=== PATIENT | male | born 1995 | race African-American/Black ===

== ENCOUNTER 2018-03-09 07:29 | Emergency (ER) | payer OTHER ==
[2018-03-09] MEDS ORDERED: Ketorolac INJ* 30 MG/ML 1 ML VIAL IV PUSH ONE (07:51)
[2018-03-09] MEDS ORDERED: Ondansetron ODT TAB* 4 MG PO ONE (07:51)
[2018-03-09] MEDS ORDERED: NS 0.9% 1000 ML* 1,000 ML IV ONE (07:51)
--- NOTE | 2018-03-09 08:12 | ED ---
Back Pain - HPI Summary HPI Summary: Pt. is a 22y.o male who presents to the ER for intermittent left flank pain x 2- 3 days. Pt. denies falls or injury. Pt. states he has had a kidney stone in the past and sxs today seem similar. Pain is intermittent and sharp in nature. No aggravating or alleviating factors. Pt. denies hematuria or urinary symptoms. He admits to N/V and chills. He has no past medical history. He has never seen a urologist or needed intervention. Symptoms are moderate in severity. - History of Current Complaint Chief Complaint: EDFlankPain Stated Complaint: LT FLANK PAIN Time Seen by Provider: 03/09/18 07:40 Hx Obtained From: Patient Onset/Duration: Sudden Onset Onset/Duration: Started Days Ago Timing: Intermittent Severity Initially: Moderate Severity Currently: Moderate Pain Intensity: 7 Character: Sharp Associated Signs And Symptoms: Positive: Abdominal Pain, Flank Pain - Allergies/Home Medications Allergies/Adverse Reactions: Allergies Allergy/AdvReac Type Severity Reaction Status Date / Time No Known Allergies Allergy Verified 03/09/18 07:36 PMH/Surg Hx/FS Hx/Imm Hx Previously Healthy: Yes Infectious Disease History: No Infectious Disease History: Denies: Traveled Outside the [place] in Last 30 Days - Social History Occupation: Unemployed Lives: With Family Alcohol Use: Occasionally Alcohol Amount: week ends Substance Use Type: Reports: Cocaine, Marijuana Substance Use Comment - Amount & Last Used: Marijuana 1-2 times a week, cocaine is occasional Smoking Status (MU): Current Some Day Smoker Review of Systems Positive: Chills. Negative: Fever Positive: Abdominal Pain, Vomiting, Nausea. Negative: Diarrhea Positive: flank pain. Negative: burning, dysuria, frequency, hematuria All Other Systems Reviewed And Are Negative: Yes Physical Exam Triage Information Reviewed: Yes Vital Signs On Initial Exam: Initial Vitals Temp Pulse Resp BP Pulse Ox 97.8 F 88 16 133/77 98 03/09/18 07:34 03/09/18 07:34 03/09/18 07:34 03/09/18 07:34 03/09/18 07:34 Vital Signs Reviewed: Yes Appearance: Positive: Well-Appearing - Pt. lying on bed, appears mildly uncomfortable, but nontoxic. Skin: Positive: Warm, Dry Head/Face: Positive: Normal Head/Face Inspection Eyes: Positive: Normal Respiratory/Lung Sounds: Positive: Clear to Auscultation Cardiovascular: Positive: Normal Abdomen Description: Positive: Other: - Abd. is soft and nontender throughout. Mild left CVA tenderness on purcussion. Neurological: Positive: Normal, CN Intact II-III Psychiatric: Positive: Normal Diagnostics - Vital Signs Vital Signs Temp Pulse Resp BP Pulse Ox 03/09/18 08:00 86 98 03/09/18 07:43 96 98 03/09/18 07:41 94 128/76 97 03/09/18 07:34 97.8 F 88 16 133/77 98 - Laboratory Result Diagrams: 03/09/18 08:00 03/09/18 08:00 Lab Statement: Any lab studies that have been ordered have been reviewed, and results considered in the medical decision making process. Back Pain Course/Dx - Course Course Of Treatment: Pt. presenting to the ER for left flank pain. No injury. He is afebrile with stable vital signs. Will obtain labs and noncon CT. He was started on IV fluids, toradol and zofran. CT abd/pelvis per radiology: IMPRESSION: Mild LEFT hydronephrosis is traced to a 5 mm maximum dimension stone at the. level of the pelvic inlet. Additional 1.5 and 3 mm calyceal stones at the LEFT kidney. On re-exam pt.'s pain has resolved. CBC and CMP are unremarkable. U/A shows RBCs and trace ketones, no signs of infection. On re- exam pt. is sitting in chair and ready to go home. He lives in [facility] and is just in the area visiting friends. Pt. states he is returning home on Sunday. Pt. is currently pain free. Results were discussed. Advised pt. he may possibly need intervention if stone does not pass. Recommend he contact his PCP on Sunday for urology referral. Rx for percocet, zofran, and flomax sent. [employer] was queried and no reg flags were identified. Pt. to return to ER for uncontrolled pain, vomiting, or fever or if concerned. Pt. understands and agrees with plan. - Diagnoses Differential Diagnosis/HQI/PQRI: Positive: Strain, Sprain, Other - UTI, urolithiasis, hydronephrosis, pyelonephritis. Provider Diagnoses: Hydronephrosis, Urolithiasis Discharge - Sign-Out/Discharge Documenting (check all that apply): Discharge/Admit/Transfer - Discharge Plan Condition: Good Disposition: HOME Prescriptions: Ondansetron ODT TAB* [Zofran 4 MG Odt TAB*] 4 mg PO Q6H PRN #12 tab.odt PRN Reason: Nausea oxyCODONE/Acetamin 5/325 MG* [Percocet 5/325 TAB*] 1 tab PO Q6H PRN #12 tab MDD 4 tablets PRN Reason: Pain Tamsulosin CAP* [Flomax CAP*] 0.4 mg PO DAILY #5 cap Patient Education Materials: Kidney Stones (ED), Hydronephrosis (ED) Referrals: Non Staff,Doctor [Primary Care Provider] - Additional Instructions: Call your PCP on Sunday for a urology referral Take medications as directed Increase fluids Return to ER for uncontrollable pain, vomiting, or for fever, or if concerned - Billing Disposition and Condition Condition: GOOD Disposition: HOME
--- NOTE | 2018-03-09 08:37 | RAD ---
INDICATION: LEFT flank pain. History of urolithiasis. COMPARISON: January 21, 2016 TECHNIQUE: Multidetector CT images were obtained from the lung bases to the ischial tuberosities. Evaluation of the viscera is limited without IV contrast. Multiplanar reformation. REPORT: Unremarkable visualized inferior thorax. Unremarkable unenhanced liver, gallbladder, pancreas, spleen. Negative for CT abnormality of the upper GI, small bowel, appendix, or colon. Negative for ascites, free air, hernias. Normal adrenal glands. Unremarkable RIGHT kidney, ureter, and urinary bladder. Mild LEFT hydronephrosis is traced to a 5 mm maximum dimension stone at the level of the pelvic inlet. Additional 1.5 and 3 mm calyceal stones at the LEFT kidney. Negative for significant perinephric or periureteral inflammatory stranding. Negative for lymphadenopathy. Normal diameter abdominal aorta and iliac arteries. Physiologic distention of the IVC. Negative for suspicious osseous lesions. IMPRESSION: Mild LEFT hydronephrosis is traced to a 5 mm maximum dimension stone at the level of the pelvic inlet. Additional 1.5 and 3 mm calyceal stones at the LEFT kidney.
[2018-03-09 08:46] LABS: ABS Basophils 0 10^3/ul (0-0.2); ABS Eosinophils 0.1 10^3/ul (0-0.6); ABS Monocytes 0.8 10^3/ul (0-0.8); ABS Neutrophils 4.1 10^3/ul (1.5-7.7); ABS Nucleated RBC 0 10^3/ul; Eosinophil % 1.4 % (0-6); Hematocrit 37 % (42-52); Hemoglobin 12.4 g/dl (14.0-18.0); Lymphocyte % 27.9 % (25-47); Mean Corpuscular HGB Conc 34 g/dl (31-36); Mean Corpuscular Hemoglobin 29 pg (27-31); Mean Corpuscular Volume 85 fL (80-94); Mean Platelet Volume 8.3 um3 (7.4-10.4); Nucleated Red Blood Cells % 0; Platelet Count 219 10^3/ul (150-450); Red Blood Count 4.34 10^6/ul (4.0-5.4); Red Cell Distribution Width 12 % (10.5-15); White Blood Count 7.1 10^3/ul (3.5-10.8)
[2018-03-09 09:05] LABS: EGFR Non-African American 87.2 (>60)
[2018-03-09 09:32] LABS: Urine Appearance Cloudy; Urine Blood 3+ (Negative); Urine Color Yellow; Urine Ketones Trace (Negative); Urine Protein Negative (Negative); Urine Specific Gravity 1.019 (1.010-1.030); Urine Urobilinogen Positive (Negative)
[2018-03-09 09:58] VITALS: BP 124/74
== END 2018-03-09 09:57 | disposition home or self-care (01) ==
LOC: ED 07:29
DX: N13.2 Hydronephrosis with renal and ureteral calculous obstruction (principal); Z87.442 Personal history of urinary calculi; Z72.0 Tobacco use
CPT/HCPCS: 36415; 74176; 80053; 81003; 81015; 85025; 87086; 96374; 99282; A9270-GY; J1885